=== PATIENT | male | born 1970 | race Caucasian/White ===

== ENCOUNTER 2017-07-26 11:16 | Emergency (ER) | payer BC ==
[~2017-07-26] VITALS: Ht 180.3 cm; Wt 93.9 kg
[2017-07-26 11:20] VITALS: BP 133/73
== END 2017-07-26 11:37 | disposition home or self-care (01) ==
LOC: ER 11:18
DX: J11.1 Influenza due to unidentified influenza virus with other respiratory manifestations (principal)
CPT/HCPCS: A4606; Z7502; Z7610

== ENCOUNTER 2017-07-26 19:00 | Emergency (ER) | payer BC ==
[~2017-07-26] VITALS: Ht 180.3 cm; Wt 93.9 kg
[2017-07-26 19:06] VITALS: BP 126/87
== END 2017-07-26 19:41 | disposition home or self-care (01) ==
LOC: ER 19:02
DX: H92.03 Otalgia, bilateral (principal)
CPT/HCPCS: A4606; Z7610

== ENCOUNTER 2017-07-31 08:25 | Emergency (ER) | payer BC ==
[~2017-07-31] VITALS: Ht 180.3 cm; Wt 93.9 kg
[2017-07-31 08:27] VITALS: BP 135/92
== END 2017-07-31 09:15 | disposition home or self-care (01) ==
LOC: ER 08:26
DX: H72.92 Unspecified perforation of tympanic membrane, left ear (principal); J06.9 Acute upper respiratory infection, unspecified
CPT/HCPCS: 99281; A4606; Z7502; Z7610

== ENCOUNTER 2020-01-03 17:52 | Emergency (ER) | payer BC, MEDICAID ==
[~2020-01-03] VITALS: Ht 180.3 cm; Wt 107.0 kg
[2020-01-03] MEDS ORDERED: HYDROCODONE/APAP 5/325MG 1 EACH TABLET PO ONE (18:30)
[2020-01-03] MEDS ORDERED: HYDROCODONE/APAP 5/325MG 1 EACH TABLET ONE (18:44)
--- NOTE | 2020-01-03 18:48 | NUR ---
BIBS FROM HOME TO ER BED 7. AAOX4. NOT IN RESP DISTRES. AMBULATORY. CAME IN FOR FLU LIKE SYMPTOMS, GEN BODY ACHE, CHILLS, COUGH AND NASAL CONGESTION. MD WAS AT THE BEDSIDE. VSS
--- NOTE | 2020-01-03 19:38 | NUR ---
Patient discharged to home in stable condition. Written and verbal after care instructions given. Patient verbalizes understanding of instruction. Pt ambulatory with a steady gait
[2020-01-03 20:37] VITALS: BP 132/85
== END 2020-01-03 18:31 | disposition home or self-care (01) ==
LOC: ER 17:56
DX: B34.9 Viral infection, unspecified (principal); M54.42 Lumbago with sciatica, left side; R05 Cough; Z20.828 Contact with and (suspected) exposure to other viral communicable diseases; G47.30 Sleep apnea, unspecified
CPT/HCPCS: 71045; 99284; C9803; U0003